=== PATIENT | male | born 1955 | race Caucasian/White ===

== ENCOUNTER → 2020-02-10 15:41 | Outpatient (BNVA) | payer MEDICARE, OTHER, SELFPAY | PROVIDERS: Family Provider Nurse Practitioner; Visit Provider Nurse Practitioner | DX: E78.2 Mixed hyperlipidemia (principal); I10 Essential (primary) hypertension; J45.909 Unspecified asthma, uncomplicated; J01.90 Acute sinusitis, unspecified | CPT/HCPCS: 80053; 80061 ==

== ENCOUNTER → 2020-08-17 08:57 | Outpatient (BNVA) | payer MEDICARE, OTHER, SELFPAY | PROVIDERS: Family Provider Nurse Practitioner; Visit Provider Nurse Practitioner | DX: I10 Essential (primary) hypertension (principal); E78.2 Mixed hyperlipidemia; J45.909 Unspecified asthma, uncomplicated | CPT/HCPCS: 80053; 80061; 85025 ==

== ENCOUNTER 2021-01-13 12:07 | Outpatient (CLI) | payer MEDICARE, OTHER, SELFPAY ==
[2021-01-13 12:49] LABS: Add Urine Microscopic? NO; Charge for UA Resulting for Rev
[2021-01-13 12:55] LABS: Bilirubin Urine Neg (Negative); Blood Urine Neg (Negative); Glucose Urine UA Norm (Normal); Ketones Urine Negative (Negative); Leukocyte Esterase Urine Negative (Negative); Nitrate Urine Negative (Negative); Protein Urine Neg (Negative); Urine Appearance Clear (CLEAR); Urine Color Straw (Yellow); Urobilinogen Urine Norm (Negative); pH Urine 5 (5-7)
[2021-01-13 13:15] LABS: Alanine Aminotransferase 25 U/L (0-41); Alkaline Phosphatase 87 IU/L (40-130); Anion Gap 14.1 (5-19); Aspartate Amino Transferase 18 U/L (0-40); Blood Urea Nitrogen 22 mg/dL (8-23); Carbon Dioxide 28 mmol/L (22-29); Chloride 102 mmol/L (98-107); Chol HDL Ratio 4.37 mg/dL (1.0-5.00); Cholesterol 153 mg/dL (0-200); Globulin 2.5 g/dL (1.3-4.6); Glomerular Filtration Rate 74.8 mL/min (90-130); Glucose 97 mg/dL (65-115); HDL Cholesterol 35 mg/dL (60-100); LDL Cholesterol Calculated 65 mg/dL (50-129); Osmolality Calculated 293 mOsm/kg (285-295); Potassium 4.1 mmol/L (3.5-5.1); Sodium 140 mmol/L (136-145); Total Bilirubin 0.3 mg/dL (0.15-1.2); Total Protein 6.5 g/dL (6.6-8.7); Triglycerides 265 mg/dL (0-150); VLDL Cholestrol Calculation 53 mg/dL (0-30)
== END 2021-01-13 12:08 | disposition home or self-care (01) ==
PROVIDERS: PCP Nurse Practitioner; Visit Provider Nurse Practitioner
DX: E78.2 Mixed hyperlipidemia (principal); I10 Essential (primary) hypertension
CPT/HCPCS: 36415; 80053; 80061; 81003

== ENCOUNTER 2021-01-28 09:59 | Outpatient (CLI) | payer MEDICARE, OTHER, SELFPAY ==
[2021-01-28 10:30] LABS: Basophils % 0.2 %; Eosinophils # 0.4 10^3/uL (0.0-0.8); Eosinophils % 2.5 %; Hematocrit 42.5 % (42.0-52.0); Hemoglobin 13.9 g/dL (11.7-16.6); Lymphocytes # 1.1 10^3/uL (0.8-4.8); Lymphocytes % 7.8 %; Mean Corpuscular HGB Conc 32.7 g/dL (30.0-36.0); Mean Corpuscular Hemoglobin 30.3 pg (28.0-34.0); Mean Corpuscular Volume 92.6 fL (80-94); Neutrophils # 11.64 10^3/uL (1.8-7.7); Neutrophils % 82.1 %; Nucleated Red Blood Cells % 0 %; Platelet Count 267 10^3/cmm (130-400); Red Blood Count 4.59 10^6/uL (4.1-5.3); Red Cell Distribution Width 13.3 % (12.1-15.1); White Blood Count 14.2 10^3/uL (4.0-10.0)
[2021-01-28 10:44] LABS: Alanine Aminotransferase 32 U/L (0-41); Albumin Level 3.8 g/dL (3.5-5.2); Alkaline Phosphatase 68 IU/L (40-130); Anion Gap 11.6 (5-19); Aspartate Amino Transferase 19 U/L (0-40); Blood Urea Nitrogen 17 mg/dL (8-23); Calcium 8.4 mg/dL (8.5-10.5); Carbon Dioxide 30 mmol/L (22-29); Chloride 101 mmol/L (98-107); Globulin 2.4 g/dL (1.3-4.6); Glomerular Filtration Rate 84.4 mL/min (90-130); Glucose 105 mg/dL (65-115); Osmolality Calculated 290 mOsm/kg (285-295); Potassium 3.6 mmol/L (3.5-5.1); Sodium 139 mmol/L (136-145); Total Bilirubin 0.3 mg/dL (0.15-1.2); Total Protein 6.2 g/dL (6.6-8.7)
== END 2021-01-28 10:00 | disposition home or self-care (01) ==
PROVIDERS: PCP Nurse Practitioner; Visit Provider Physician Assistant
DX: L98.2 Febrile neutrophilic dermatosis [Sweet] (principal)
CPT/HCPCS: 36415; 80053; 85025

== ENCOUNTER → 2021-04-05 14:44 | Outpatient (BNVA) | payer MEDICARE, OTHER, SELFPAY | PROVIDERS: PCP Nurse Practitioner; Visit Provider Family Medicine | DX: M25.561 Pain in right knee (principal) | CPT/HCPCS: 73562 ==

== ENCOUNTER 2021-04-09 12:09 | Outpatient (CLI) | payer MEDICARE, OTHER, SELFPAY ==
--- NOTE | 2021-04-09 13:09 | MR_ITS ---
WS: [id number] MRI RIGHT KNEE HISTORY: M25.561 - Pain in right knee COMPARISON: 03/28/2021 Anterior cruciate ligament: Intact. Posterior cruciate ligament: Intact. Medial collateral ligament: Increased signal along the MCL. No full-thickness tears identified. Posterior lateral corner structures: Intact. Medial menisci: Intrasubstance degeneration in the posterior horn. There is increased signal along th e inferior articular surface but does not extend completely through the meniscus. Anterior horn is no rmal. Lateral meniscus: Blunting of the free edge and intrasubstance degeneration of the posterior horn. Extensor mechanism: Distal quadriceps tendon and patellar tendons are intact. Fluid and soft tissue: Small suprapatellar effusion. Small Rosenbaum's cyst extends over a length of 3 cm . Osseous and articular structures: Patellofemoral compartment: Mild but diffuse loss of cartilage involving the patella. No marrow edema . Medial compartment: Mild narrowing of the medial compartment. Moderate loss of cartilage along the we ightbearing surface of the femoral condyle and tibial plateau. Lateral compartment: Moderate chondromalacia. 12 mm area of loss of cartilage involving the weightbea ring surface of the femoral condyle. Additional loss of cartilage over the tibial plateau. No subchon dral edema. Multilobulated intermediate signal posterior to the PCL. Favor complex ganglion in the posterior knee . MR/MR knee RT wo con* [id number] IMPRESSION: 1. Mild MCL sprain. 2. Moderate chondromalacia medial and lateral compartments. 3. Intrasubstance degeneration of the posterior horns of the medial and latera l meniscus. Suspect a tear involving the free edge of the lateral meniscus. 4. Mild MCL sprain. 5. Complex collection posterior to the PCL is likely a ganglion. 6. Mild diffuse chondromalacia patella.
== END 2021-04-09 12:10 | disposition home or self-care (01) ==
PROVIDERS: PCP Nurse Practitioner; Visit Provider Family Medicine
DX: S83.411A Sprain of medial collateral ligament of right knee, initial encounter (principal); M22.41 Chondromalacia patellae, right knee
CPT/HCPCS: 73721

== ENCOUNTER → 2021-06-10 11:58 | Outpatient (BNVA) | payer MEDICARE, OTHER, SELFPAY | PROVIDERS: PCP Nurse Practitioner; Visit Provider Surgery | DX: Z12.11 Encounter for screening for malignant neoplasm of colon (principal); Z20.822 Contact with and (suspected) exposure to COVID-19 | CPT/HCPCS: 87635 ==

== ENCOUNTER → 2021-06-16 15:10 | Outpatient (BNVA) | payer MEDICARE, OTHER, SELFPAY | PROVIDERS: PCP Nurse Practitioner; Visit Provider Surgery | DX: Z01.812 Encounter for preprocedural laboratory examination (principal); Z20.822 Contact with and (suspected) exposure to COVID-19 | CPT/HCPCS: 87635 ==

== ENCOUNTER 2021-06-21 06:21 | Day surgery (SDC) | payer MEDICARE, OTHER, SELFPAY ==
[2021-06-17 14:10] VITALS: BMI 29.5
[2021-06-21 06:50] VITALS: BP 148/91; PULSE 82; RESP 18; TEMP 36.7; O2SAT 98
[2021-06-21] MEDS: sodium chloride 0.9% 1,000 ML 30 ML IV (06:54)
--- NOTE | 2021-06-21 06:54 | P.HP_ITS ---
Same Day Surgery H&P Indication for Procedure/HPI DATE OF PROCEDURE: June 21, 2021 CHIEF COMPLAINT/INDICATIONFOR SURGICAL PROCEDURE: screening PREOP DIAGNOSIS: screening colonoscopy PLANNED PROCEDRUE: Operation Date: 06/21/21 07:30 Proposed Procedures p Colonoscopy 47376 z12.11(Not Applicable) - Benedict Escobar MD Medications/Allergies* Home Medications Medication Instructions Recorded Confirmed Type Kameron Mag Zinc Plus D3 1 tab PO DAILY 06/17/21 06/21/21 History ascorbic acid (vitamin C) [Vitamin 1,000 mg PO DAILY 06/17/21 06/21/21 History C] cholecalciferol (vitamin D3) 1,000 unit PO DAILY 06/17/21 06/21/21 History [Vitamin D3] omega-3 fatty acids [[place] 3] 500 mg PO DAILY 06/17/21 06/21/21 History vit C,W-Cl-ngtmz-lutein-zeaxan 1 cap PO BID 06/17/21 06/21/21 History [PreserVision AREDS-2] zinc 50 mg PO DAILY 06/17/21 06/21/21 History Allergies/Adverse Reactions Allergy/AdvReac Type Severity Reaction Status Date / Time aspirin Allergy ALGY-Wheezi Verified 06/21/21 06:41 ng ibuprofen Allergy ALGY-Difficulty Verified 06/21/21 06:41 Breathing levofloxacin [From Levaquin] Allergy ALGY-Rash Verified 06/21/21 06:41 Pertinent History/Comorbid Conditions* Medical History (Updated 04/13/21 @ 12:41 by Ralph Jaime MD) Asthma History of throat cancer radiation and chemotherapy HTN, goal below 130/80 Mixed hyperlipidemia Surgical History (Updated 02/10/20 @ 15:28 by RODDY Garcia-C) History of nasal surgery Family History (Updated 01/28/20 @ 09:11 by EVELYNE Edmondson) Bleeding disorder Denies family history of Cerebel lac-proln coma Social History Smoking and tobacco status: never smoked Second hand smoke exposure: No Smoking risk assessment/counseling performed?: No Alcohol intake: never Desire information about alcohol rehabilitation?: No Counseling given: No Desire information about substance/drug rehabilitation?: No Counseling given: No Adopted: No Caregiver/support person: No Lives independently: Yes Household members: spouse Housing: House Marital status: Current occupational status: retired History of recent travel: No Current gender identity: Male Pertinent Exam Findings alert, oriented x 3 and regular rate & rhythm Recommendations Surgery/Procedure today Coding Level of Care Code Acute 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
--- NOTE | 2021-06-21 06:59 | ANES.PREANE2 ---
Pre-Anesthetic Assessment Pre-Anesthetic Assessment: Height/Weight: Height 1.88 m Weight 104.326 kg Temp Pulse Resp BP Pulse Ox 98.0 F 82 18 148/91 98 06/21/21 06:50 06/21/21 06:50 06/21/21 06:50 06/21/21 06:50 06/21/21 06:50 Preop Diagnosis: screening colonoscopy Proposed Procedure: Operation Date: 06/21/21 07:30 Proposed Procedures p Colonoscopy 73474 z12.11(Not Applicable) - Benedict Escobar MD Familial anesthetic complications: takes a while to wake up Was Beta Reji taken within 24 hours: N/A Was Clonidine taken within 24 hours: N/A Last intake: Intake Last Liquid Date 06/20/21 Last Liquid Time 22:30 Last Solid Date 06/19/21 Last Solid Time 23:30 Social: Social History: No alcohol and No tobacco Exam: Pre-Anes Outpt Exam: alert, oriented x 3, clear to auscultation bilaterally and regular rate & rhythm Airway: Submandibular: WNL Cervical ROM: WNL MP: 2 Dentition: False Pulmonary: Pulmonary: Asthma Comments: throat cancer, had teeth removed due to radiation. claims no airway issues CV/HEM: CV/HEM: HTN : : None reported Hepatic: Hepatic: None reported GI: GI: GERD (OTC controls ) Metabolic: Metabolic: Hyperlipidemia Musc/skel: Musc/skel: Lower Back Pain Anesthetic Plan: ASA status: 2 Anesthesia: MAC Risk of > 500 ml blood loss (7ml/kg in children): No Meds/Allergies Current Medications: Current Medications Generic Name Dose Route Start Last Admin Trade Name Freq PRN Reason Stop Dose Admin Sodium Chloride 1,000 mls @ 30 ml s/hr 06/21/21 06:30 06/21/21 06:54 Sodium Chloride 0.9% IV 06/22/21 06:29 30 mls/hr .Q24H MARCELO Administration PFSH Anesthesia PFSH: Medical History Asthma History of throat cancer radiation and chemotherapy HTN, goal below 130/80 Mixed hyperlipidemia Surgical History History of nasal surgery Family History Other Bleeding disorder Denies family history of Cerebel lac-proln coma Social History Smoking and tobacco status: never smoked Second hand smoke exposure: No Smoking risk assessment/counseling performed?: No Alcohol intake: never Desire information about alcohol rehabilitation?: No Counseling given: No Desire information about substance/drug rehabilitation?: No Counseling given: No Adopted: No Caregiver/support person: No Lives independently: Yes Household members: spouse Housing: House Marital status: Current occupational status: retired History of recent travel: No Current gender identity: Male Data Anesthesia Cardiac Studies: No Data to Display
[2021-06-21 07:53] VITALS: BP 121/75; PULSE 73; RESP 16; TEMP 36.3; O2SAT 97
[2021-06-21 08:06] VITALS: BP 130/79; PULSE 70; RESP 16; O2SAT 98
--- NOTE | 2021-06-21 08:06 | ANE.PACU2 ---
Inpatient post-anesthesia follow up: Airway intact: Yes Vital signs: Temperature 97.3 F Pulse Rate 73 Respiratory Rate 16 Blood Pressure 121/75 Pulse Oximetry 97 Oxygen Delivery Me thod Nasal Cannula Oxygen Flow Rate 3 Fraction of Inspir ed Oxygen Hydration adequate: Yes Nausea and vomiting: No Pain level: 1 Mental status: Baseline
== END 2021-06-21 08:25 | disposition home or self-care (01) ==
PROVIDERS: PCP Family Medicine; Visit Provider Surgery
PROC: 0DJD8ZZ Inspection of Lower Intestinal Tract, Via Natural or Artificial Opening Endoscopic (ICD-10-PCS; CPT 45378; principal; 2021-06-21 07:30)
DX: Z12.11 Encounter for screening for malignant neoplasm of colon (principal); D12.4 Benign neoplasm of descending colon; J45.909 Unspecified asthma, uncomplicated; I10 Essential (primary) hypertension; Z85.89 Personal history of malignant neoplasm of other organs and systems; E78.2 Mixed hyperlipidemia
CPT/HCPCS: 45380; 88305; 96360; J2704; J7030

== ENCOUNTER 2021-08-21 20:34 | Emergency (ER) | payer MEDICARE, OTHER, SELFPAY ==
[2021-08-21 20:44] VITALS: BP 134/90; PULSE 95; RESP 16; TEMP 37.1; O2SAT 96; BMI 31.6
--- NOTE | 2021-08-21 20:58 | ECG_ITS ---
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 Measurements Intervals [place] Rate: 88 P: 41 AL: 161 QRS: 25 QRSD: 94 T: 55 QT: 330 QTc: 401 Interpretive Statements SINUS RHYTHM EARLY REPOLARIZATION [ST ELEVATION WITH NORMALLY INFLECTED T-WAVE] No previous ECG available for comparison Electronically Signed On 08-22-2021 13:13:06 EARLY CHILDHOOD DIRECTOR by Maria D Dietz M.D. [id number]
--- NOTE | 2021-08-21 20:58 | XRR_ITS ---
PROCEDURE INFORMATION: Exam: XR Chest Exam date and time: 08/21/2021 8:58 PM Age: 65 years old Clinical indication: Patient HX: C/O cp radiating to back w SOB and jaw pain; Additional info: Chest pain TECHNIQUE: Imaging protocol: XR of the chest. Views: 1 view. COMPARISON: CT Chest/Abd wwo [id number] 10/25/2017 12:28 PM FINDINGS: Lungs: Unremarkable. No consolidation. Pleural spaces: Unremarkable. No pleural effusion. No pneumothorax. Heart/Mediastinum: Unremarkable. No cardiomegaly. Bones/joints: Unremarkable. XR/XR chest 1V portable [id number] IMPRESSION: Unremarkable Radiation Dose CTDIVOL = (mGy): DLP = (mGy-cm)
[2021-08-21 21:07] LABS: Basophils % 0.2 %; Eosinophils # 0.3 10^3/uL (0.0-0.8); Eosinophils % 1.5 %; Hematocrit 42.1 % (42.0-52.0); Hemoglobin 14.4 g/dL (11.7-16.6); Lymphocytes % 5.4 %; Mean Corpuscular HGB Conc 34.2 g/dL (30.0-36.0); Mean Corpuscular Hemoglobin 29.8 pg (28.0-34.0); Mean Corpuscular Volume 87.2 fl (80-94); Mean Platelet Volume 9.6 fL (7.4-10.4); Monocytes # 1.4 10^3/uL (0.2-0.9); Neutrophils # 15.02 10^3/uL (1.8-7.7); Neutrophils % 84.4 %; Nucleated Red Blood Cells % 0 %; Platelet Count 362 10^3/cmm (130-400); Red Blood Count 4.83 10^6/uL (4.1-5.3); Red Cell Distribution Width 12.9 % (12.1-15.1); White Blood Count 17.8 10^3/uL (4.0-10.0)
[2021-08-21 21:27] LABS: Alanine Aminotransferase 65 U/L (0-41); Alkaline Phosphatase 109 IU/L (40-130); Anion Gap 18.3 (5-19); Aspartate Amino Transferase 44 U/L (0-40); Blood Urea Nitrogen 15 mg/dL (8-23); Calcium 9.8 mg/dL (8.5-10.5); Carbon Dioxide 24 mmol/L (22-29); Chloride 99 mmol/L (98-107); Globulin 2.9 g/dL (1.3-4.6); Glomerular Filtration Rate 84.4 mL/min (90-130); Glucose 131 mg/dL (65-115); Osmolality Calculated 287 mOsm/kg (285-295); Potassium 4.3 mmol/L (3.5-5.1); Sodium 137 mmol/L (136-145); Total Bilirubin 0.4 mg/dL (0.15-1.2); Total Protein 6.9 g/dL (6.6-8.7); Troponin(5th) Baseline 11 ng/L (0-15)
[2021-08-21 22:20] VITALS: PULSE 78; RESP 16; O2SAT 97
[2021-08-21 22:21] VITALS: BP 172/78
[2021-08-21 22:43] LABS: Troponin 5 2HR 11.42 ng/L (0-15); Troponin 5 2HR Delta 0.42 ABS# (0-10)
[2021-08-22] MEDS: lidocaine 2% viscous 15 ML, aluminum-mag hydrox-simethicon 30 ML, sucralfate oral liq 1 GM PO (00:39)
[2021-08-22] MEDS: morphine 4 mg/mL SDV 1 mL IVP (00:40)
[2021-08-22] MEDS: ondansetron 2 mg/ML SDV 2 mL 4 MG IVP (00:40)
--- NOTE | 2021-08-22 01:03 | W.ED.CHESTPA ---
HPI - Chest Pain General: Chief Complaint: Chest Pain Stated Complaint: Pain in Shoulder blades\SOB\Chest Pains\Jaw Pains Time Seen by Provider: 08/21/21 23:53 History of Present Illness: HPI narrative: 65-year-old male with no prior history of coronary disease. He was treated for bronchitis last week with steroids and antibiotics. He presents with chest discomfort, centralized to the mid chest radiating to his left jaw. It is somewhat exertional and that it started while he was working outside earlier. It seemed to have improved now on its own. He denies fever. He notes a productive cough with sputum last week, that has improved to some degree. MD complaint: chest pain Pertinent past history: other Onset (ago): hour(s) Timing of current episode: constant and still present (Improved) Prior episodes: No Onset: during exertion Pain location: substernal and left chest Pain radiation: jaw/teeth Severity: moderate Quality: tightness and sharp Relieving factors: nothing Exacerbating factors: inspiration Associated symptoms: Deny abdominal pain, diaphoresis, dyspnea, fever(s), leg edema or palpitations Treatment prior to arrival: none Review of Systems Const: Denies: fever(s) or diaphoresis Card: Reports: chest pain; Denies: palpitations Resp: Reports: productive cough; Denies: dyspnea GI: Denies: abdominal pain PFSH ED PFSH: Medical History Asthma History of throat cancer radiation and chemotherapy HTN, goal below 130/80 Mixed hyperlipidemia Surgical History History of nasal surgery Status post colonoscopy (06/21/21) Family History Other Bleeding disorder Denies family history of Cerebel lac-proln coma Social History Smoking and tobacco status: never smoked Second hand smoke exposure: No Smoking risk assessment/counseling performed?: No Alcohol intake: never Desire information about alcohol rehabilitation?: No Counseling given: No Desire information about substance/drug rehabilitation?: No Counseling given: No Adopted: No Caregiver/support person: No Lives independently: Yes Household members: spouse Housing: House Marital status: Current occupational status: retired History of recent travel: No Current gender identity: Male Physical Exam Const: COMMON NORMALS: no acute distress, patient oriented x3 and alert HENMT: COMMON NORMALS: normocephalic and atraumatic HEAD & SCALP: normocephalic and atraumatic Eye: COMMON NORMALS: Equal, round and reactive pupils present and EOMs intact bilaterally PUPIL: Yes Equal, round and reactive pupils present Chest: COMMONS NORMALS: normal inspection of the chest CHEST: Yes tenderness (Left anterior chest, reproduces pain) Resp: COMMON NORMALS: normal respiratory effort, No use of accessory muscles and clear to auscultation bilaterally AUSCULTATION: clear to auscultation bilaterally Cardio: COMMON NORMALS: regular rate and regular rhythm RATE: regular rate RHYTHM: regular rhythm GI: COMMON NORMALS: Normal to inspection, nondistended, normoactive bowel sounds present, Soft to palpation, non-tender and no masses PALPATION: Yes Soft to palpation Neuro: COMMON NORMALS: patient oriented x3 SENSORIUM/ORIENTATION: Yes alert Course Vital Signs: Vital signs: Vital Signs Temperature 98.8 F 08/21/21 20:44 Pulse Rate 78 08/21/21 22:20 Respiratory Rate 16 08/21/21 22:20 Blood Pressure 172/78 08/21/21 22:21 Pulse Oximetry 97 08/21/21 22:20 MDM - Chest Pain MDM Narrative: Medical decision making narrative: 65-year-old male with reproducible chest discomfort. White blood cell count is 17.8, but likely due to steroid injection a few days ago. Other laboratory is benign EKG shows a sinus rhythm with early repole pattern, no ischemic-looking ST elevation. [place] is normal. Blood pressure is 120/73 heart rate 80. His saturations are normal. His troponin was normal at 0 and 2 hours. His chest x-ray is negative. His pain is resolved after morphine and GI cocktail here. He will be allowed home. Lab Data: Labs: Lab Results 08/21/21 08/21/21 08/21/21 20:59 20:59 20:59 WBC 17.8 10^3/uL H 10 ^3/uL (4.0-10.0) RBC 4.83 10^6/uL 10^6 /uL (4.1-5.3) Hgb 14.4 g/dL g/dL (11.7-16.6) Hct 42.1 % % (42.0-52.0) MCV 87.2 fl fl (80-94) MCH 29.8 pg pg (28.0-34.0) MCHC 34.2 g/dL g/dL (30.0-36.0) RDW 12.9 % % (12.1-15.1) Plt Count 362 10^3/cmm 10^3 /cmm (130-400) MPV 9.6 fL fL (7.4-10.4) Neut % (Auto) 84.4 % % Lymph % (Auto) 5.4 % % [place] % (Auto) 8.0 % % Eos % (Auto) 1.5 % % Baso % (Auto) 0.2 % % Neut # (Auto) 15.02 10^3/uL H 1 0^3/uL (1.8-7.7) Lymph # (Auto) 1.0 10^3/uL 10^3/ uL (0.8-4.8) [place] # (Auto) 1.4 10^3/uL H 10^ 3/uL (0.2-0.9) Eos # (Auto) 0.3 10^3/uL 10^3/ uL (0.0-0.8) Baso # (Auto) 0.0 10^3/uL 10^3/ uL (0.0-0.1) Nucleated RBC % (a uto) 0 % % Nucleated RBCs # 0.0 /100WBC /100W BC Sodium 137 mmol/L mmol/L (136-145) Potassium 4.3 mmol/L mmol/L (3.5-5.1) Chloride 99 mmol/L mmol/L (98-107) Carbon Dioxide 24 mmol/L mmol/L (22-29) Anion Gap 18.3 (5-19) BUN 15 mg/dL mg/dL (8-23) Creatinine 0.9 mg/dL mg/dL (0.7-1.2) GFR Calculation 84.4 mL/min L mL/ min (90-130) Glucose 131 mg/dL H mg/dL (65-115) Calculated Osmolal ity 287 mOsm/kg mOsm/ kg (285-295) Calcium 9.8 mg/dL mg/dL (8.5-10.5) Total Bilirubin 0.4 mg/dL mg/dL (0.15-1.2) AST 44 U/L H U/L (0-40) ALT 65 U/L H U/L (0-41) Alkaline Phosphata se 109 IU/L IU/L (40-130) Troponin T Baselin e 11 ng/L ng/L (0-15) Troponin T 120 Min [place] Troponin T Total Protein 6.9 g/dL g/dL (6.6-8.7) Albumin 4.0 g/dL g/dL (3.5-5.2) Globulin 2.9 g/dL g/dL (1.3-4.6) 08/21/21 22:17 WBC RBC Hgb Hct MCV MCH MCHC RDW Plt Count MPV Neut % (Auto) Lymph % (Auto) [place] % (Auto) Eos % (Auto) Baso % (Auto) Neut # (Auto) Lymph # (Auto) [place] # (Auto) Eos # (Auto) Baso # (Auto) Nucleated RBC % (a uto) Nucleated RBCs # Sodium Potassium Chloride Carbon Dioxide Anion Gap BUN Creatinine GFR Calculation Glucose Calculated Osmolal ity Calcium Total Bilirubin AST ALT Alkaline Phosphata se Troponin T Baselin e Troponin T 120 Min [place] 11.42 ng/L ng/L (0-15) [place] Troponin T 0.42 ABS# ABS# (0-10) Total Protein Albumin Globulin Discharge Plan Discharge Patient Disposition: Home Clinical Impression: Chest pain Qualifiers: Chest pain type: chest pain on breathing Qualified Code(s): R07.1 - Chest pain on breathing Condition: Stable Prescriptions: No Action montelukast [Singulair] 10 mg tablet 10 mg PO DAILY Qty: 90 RF: 1 promethazine-DM 6.25-15 mg/5 mL syrup 5 ml PO Q6H PRN (Reason: cough) Qty: 160 RF: 0 cefdinir 300 mg capsule 300 mg PO BID Qty: 20 RF: 0 albuterol sulfate [ProAir HFA] 90 mcg/actuation HFA aerosol inhaler 2 inh INHALATION .4XD PRN (Reason: shortness of breath or wheezing) Qty: 18 RF: 0 clotrimazole-betamethasone 1-0.05 % cream 1 applic topical BID 14 Days Qty: 45 RF: 0 albuterol sulfate 2.5 mg /3 mL (0.083 %) solution for nebulization 2.5 mg inhalation Q4H PRN (Reason: shortness of breath or wheezing) Qty: 180 RF: 5 budesonide [Pulmicort] 0.5 mg/2 mL suspension for nebulization 0.5 mg INHALATION BID Qty: 60 RF: 2 Perforomist 20 mcg/2 mL solution for nebulization 2 ml INHALATION Q12H Qty: 120 RF: 2 atorvastatin [Lipitor] 20 mg tablet 20 mg PO DAILY Qty: 90 RF: 1 lisinopril-hydrochlorothiazide 20-25 mg tablet 1 tab PO DAILY Qty: 90 RF: 0 ascorbic acid (vitamin C) [Vitamin C] 1,000 mg Tablet 1,000 mg PO DAILY RF: 0 cholecalciferol (vitamin D3) [Vitamin D3] 25 mcg (1,000 unit) Capsule 1,000 unit PO DAILY RF: 0 omega-3 fatty acids Capsule 500 mg PO DAILY RF: 0 zinc 50 mg Capsule 50 mg PO DAILY RF: 0 PreserVision AREDS-2 250-90-40-1 mg Capsule 1 cap PO BID RF: 0 Kameron Mag Zinc Plus D3 1 tab PO DAILY RF: 0 Discharge Orders: Discharge ED (Routine); Ordered 08/22/21 Ordered By: Sal Cannon Referrals: Valery Bunn MD [Primary Care Provider] - Discharge Diet: Advance as tolerated Discharge Activity: Increase activity as tolerated Patient Instructions: Chest Pain (ED) Activity Restrictions/Additional Instructions: Return for return of or worsening chest pain, shortness of breath, fever, cough, vomiting, other concerning symptoms. A case management referral has been made for an outpatient stress test for you. You should get a call at the beginning of the week regarding this. Results will be sent to your primary care physician. Coding Level of Care Code ED Cloud Engineer for Chg Fwd Exam Detailed
[2021-08-22 01:48] VITALS: BP 100/72; PULSE 86; RESP 18; O2SAT 96
--- NOTE | 2021-08-23 12:42 | DCPLANNER ---
ehs manager had message to schedule an outpatient stress test for patient. ehs manager faxed signed order to centralized scheduling, who will call patient with appointment information.
--- NOTE | 2021-09-21 06:44 | DCPLANNER ---
Patient has an outpatient stress test scheduled for September at 1:00, centralized scheduling will call patient with the appointment information.
--- NOTE | 2021-10-07 14:20 | DCPLANNER ---
Patient had an out patient stress test - appointment was cancelled.
== END 2021-08-22 01:49 | disposition home or self-care (01) ==
PROVIDERS: Emergency Provider Emergency Medicine; PCP Family Medicine
DX: R07.1 Chest pain on breathing (principal); Z85.89 Personal history of malignant neoplasm of other organs and systems; Z92.21 Personal history of antineoplastic chemotherapy; Z92.3 Personal history of irradiation; I10 Essential (primary) hypertension; E78.2 Mixed hyperlipidemia
CPT/HCPCS: 71045; 80053; 84484; 85025; 93005; 96374; 96375; 99284; J2270; J2405

== ENCOUNTER → 2021-09-30 10:29 | Outpatient (BNVA) | payer MEDICARE, OTHER, SELFPAY | PROVIDERS: PCP Family Medicine; Visit Provider Nurse Practitioner Family | DX: R06.02 Shortness of breath (principal); J44.9 Chronic obstructive pulmonary disease, unspecified; T54.91XA Toxic effect of unspecified corrosive substance, accidental (unintentional), initial encounter; Y92.89 Other specified places as the place of occurrence of the external cause; J84.9 Interstitial pulmonary disease, unspecified; D71 Functional disorders of polymorphonuclear neutrophils | CPT/HCPCS: 71046 ==

== ENCOUNTER → 2022-07-01 11:16 | Outpatient (BNVA) | payer MEDICARE, OTHER, SELFPAY | PROVIDERS: PCP Family Medicine; Visit Provider Family Medicine | DX: E78.2 Mixed hyperlipidemia (principal); I10 Essential (primary) hypertension; Z12.5 Encounter for screening for malignant neoplasm of prostate | CPT/HCPCS: 80053; 80061; 84443; 85025; G0103 ==

== ENCOUNTER → 2022-09-20 12:39 | Outpatient (BNVA) | payer MEDICARE, OTHER, SELFPAY | PROVIDERS: PCP Family Medicine; Visit Provider Family Medicine | DX: H66.93 Otitis media, unspecified, bilateral (principal); J45.20 Mild intermittent asthma, uncomplicated; I10 Essential (primary) hypertension; E78.2 Mixed hyperlipidemia; E55.9 Vitamin D deficiency, unspecified; E53.8 Deficiency of other specified B group vitamins; M25.561 Pain in right knee | CPT/HCPCS: 80053; 80061; 82306; 82607; 83540; 84443; 85025 ==

== ENCOUNTER → 2022-12-09 10:44 | Outpatient (BNVA) | payer MEDICARE, OTHER, SELFPAY | PROVIDERS: PCP Family Medicine; Visit Provider Nurse Practitioner Family | DX: M79.671 Pain in right foot (principal) | CPT/HCPCS: 73650 ==

== ENCOUNTER → 2023-01-02 17:18 | Outpatient (BNVA) | payer MEDICARE, OTHER, SELFPAY | PROVIDERS: PCP Family Medicine; Visit Provider Family Medicine | DX: Z20.822 Contact with and (suspected) exposure to COVID-19 (principal); R05.9 Cough, unspecified | CPT/HCPCS: 87400; 87426 ==

== ENCOUNTER → 2023-08-14 15:40 | Outpatient (BNVA) | payer MEDICARE, OTHER, SELFPAY | PROVIDERS: PCP Family Medicine; Visit Provider Family Medicine | DX: J45.909 Unspecified asthma, uncomplicated (principal); E78.2 Mixed hyperlipidemia; I10 Essential (primary) hypertension; J01.90 Acute sinusitis, unspecified; J20.9 Acute bronchitis, unspecified | CPT/HCPCS: 80053; 80061; 84443; 85025 ==

== ENCOUNTER → 2024-01-16 11:56 | Outpatient (BNVA) | payer MEDICARE, OTHER, SELFPAY | PROVIDERS: PCP Family Medicine; Visit Provider Family Medicine | DX: R30.0 Dysuria (principal); M54.9 Dorsalgia, unspecified; M54.50 Low back pain, unspecified | CPT/HCPCS: 81000 ==

== ENCOUNTER → 2024-10-30 11:44 | Outpatient (BNVA) | payer MEDICARE, OTHER, SELFPAY | PROVIDERS: PCP Nurse Practitioner; Visit Provider Nurse Practitioner | DX: J45.909 Unspecified asthma, uncomplicated (principal); J45.20 Mild intermittent asthma, uncomplicated; E78.2 Mixed hyperlipidemia; I10 Essential (primary) hypertension; E55.9 Vitamin D deficiency, unspecified; E61.1 Iron deficiency; Z12.5 Encounter for screening for malignant neoplasm of prostate | CPT/HCPCS: 80053; 80061; 82306; 83540; 84443; 85025; G0103 ==

== ENCOUNTER → 2025-03-19 09:18 | Outpatient (BNVA) | payer MEDICARE, OTHER, SELFPAY | PROVIDERS: PCP Nurse Practitioner; Visit Provider Nurse Practitioner | DX: I10 Essential (primary) hypertension (principal); E78.2 Mixed hyperlipidemia | CPT/HCPCS: 80053; 80061 ==

== ENCOUNTER → 2025-09-10 08:18 | Outpatient (BNVA) | payer MEDICARE, OTHER, SELFPAY | PROVIDERS: PCP Nurse Practitioner; Visit Provider Nurse Practitioner | DX: E78.2 Mixed hyperlipidemia (principal); I10 Essential (primary) hypertension | CPT/HCPCS: 80053; 80061 ==